=== PATIENT | male | born 1970 | race Caucasian/White ===

== ENCOUNTER 2024-09-26 12:11 | Emergency (ER) | payer BC ==
[~2024-09-26] VITALS: Ht 175.3 cm; Wt 118.8 kg
[2024-09-26 18:15] VITALS: BP 141/81; TEMP 99; O2SAT 97
== END 2024-09-26 18:28 | disposition home or self-care (01) ==
LOC: M ED 12:11
DX: R60.0 Localized edema (principal); M79.661 Pain in right lower leg